=== PATIENT | male | born 1990 | race African-American/Black ===

== ENCOUNTER 2018-12-16 21:55 | Emergency (ER) | payer SELFPAY | END 2018-12-17 01:58 | disposition left against medical advice (07) | LOC: ER 22:05 | DX: Z53.21 Procedure and treatment not carried out due to patient leaving prior to being seen by health care provider (principal) ==

== ENCOUNTER 2018-12-16 23:30 | Emergency (ER) | payer SELFPAY ==
[~2018-12-16] VITALS: Ht 172.7 cm; Wt 107.0 kg
[2018-12-17 05:00] VITALS: BP 121/65
== END 2018-12-17 05:25 | disposition home or self-care (01) ==
LOC: ER 23:30
DX: F12.10 Cannabis abuse, uncomplicated (principal); I10 Essential (primary) hypertension
CPT/HCPCS: 99283